=== PATIENT | female | born 1995 | race Caucasian/White ===

== ENCOUNTER 2018-05-19 08:54 | Outpatient (CLI) | payer BC ==
--- NOTE | 2018-05-19 09:46 | RAD ---
THREE VIEWS RIGHT FOOT: COMPARISON: None. HISTORY: Bilateral foot pain for years. FINDINGS: Three views right foot show no evidence of acute fracture or dislocation. No degenerative changes ar e seen. No soft tissue swelling is present. IMPRESSION: Unremarkable exam. POS: B[facility]I
--- NOTE | 2018-05-19 09:48 | RAD ---
THREE VIEWS OF THE LEFT FOOT: COMPARISON: None. HISTORY: Bilateral foot pain for years. FINDINGS: Three views left foot show no evidence of acute fracture or dislocation. No degenerative changes are seen. IMPRESSION: Unremarkable exam. POS: C
== END 2018-05-19 08:55 | disposition home or self-care (01) ==
LOC: SCSRAD 08:54
PROVIDERS: ATTEND Nurse Practitioner Family
DX: K21.9 Gastro-esophageal reflux disease without esophagitis (principal)